=== PATIENT | female | born 1960 | race Caucasian/White ===

== ENCOUNTER 2024-10-20 08:01 | Outpatient (AMB) | payer BC, SELFPAY ==
--- NOTE | 2024-10-20 08:03 | MHC.PC.OV ---
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 Intake Note: New patient visit Distribution Collection Operator Required: No Allergies No Known Allergies Allergy (Verified 10/20/24 08:06) Medication List - Last Reconciled 10/20/24 by Tessa White PA-C estradiol 0.01%(0.1mg/gram) vaginal nitrofurantoin macrocrystal 50 mg PO DAILY PRN venlafaxine ER 75 mg PO ONCE Tobacco use date assessed: 10/20/24 Fall risk assessment: No Falls in past year Last assessed Fall Risk: 10/20/24 Dental Screening Dental Screen Date: 10/20/24 HPI 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 She is transferring from [place] and reports a significant past medical history of Crohn's disease, SCC, prediabetes, anxiety, depression, osteopenia, hx of SEAN, SCC and lichen sclerosis. Psych: Has a history of anxiety and depression and has been well-controlled on venlafaxine 75 mg daily. GI: Follows with [facility] for Crohn's disease and gets colonoscopy q 5 years. Discussing starting Skyrizi pending insurance approval. Crohn's disease is somewhat stable in terms of symptoms but she states on imaging she did have signs of disease progression. Derm: had recent SCC from left chest wall. She followed with [facility] for removal of skin cancer but normally follows with [facility]. 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 She would like this done at [facility] General: Frustrated with her weight and interested in possibly trying a GLP 1. 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 1. Little interest or pleasure in doing things: not at all 2. Feeling down, depressed, or hopeless: not at all 3. Trouble falling or staying asleep, or sleeping too much: not at all 4. Feeling tired or having little energy: not at all 5. Poor appetite or overeating: not at all 6. Feeling bad about yourself - or that you are a failure or have let yourself or your family down: not at all 7. Trouble concentrating on things, such as reading the newspaper or watching television: not at all 8. Moving or speaking so slowly that other people could have noticed. Or the opposite - being so fidgety or restless that you have been moving around a lot more than usual: not at all 9. Thoughts that you would be better off or of hurting yourself in some way: not at all Total score: 0 Depression Screening Interpretation: Negative Depression Screening Done: Yes 13051 - PHQ-9 Billing: Yes Source: Developed by Drs. Hernandez Mendoza, Tosha Thompson, Roge Matute and colleagues, with an educational yessi from [employer]. Thrive Questionnaire I am a: Patient What is your living situation today?: I have a steady place to live Within the past 12 months, did the food you bought not last and you didn't have the money to get more?: Never true Within the past 12 months, did you worry whether your food would run out before you got money to buy more?: Never true Do you have trouble paying for medicines?: No Do you have trouble getting transportation to medical appointments?: No Do you have trouble paying your heating and electricity bill?: No Do you have trouble taking care of your child, family member or friend?: No Do you have trouble with day-to-day activities such as bathing, preparing meals, shopping, managing finances, etc.?: No Are you currently unemployed and looking for a job?: No Are you interested in more education?: No Please select the resources that you would like help with: None Currently or been in a relationship where the following occur: No concerns reported THRIVE Score: 0 AUDIT C Alcohol Use Questionnaire (AUDIT-C) 1. How often do you have a drink containing alcohol?: 2-4 times a month 2. How many drinks containing alcohol do you have on a typical day when you are drinking?: 1 or 2 3. How often do you have six or more drinks on one occasion?: Never Total Score: 2 Score Reviewed/Action Taken: Yes VICKIE-7 AMB Questionnaire VICKIE-7 Feeling nervous, anxious, or on edge: 0 = Not at all Not being able to stop or control worryin = Not at all Worrying too much about different things: 0 = Not at all Trouble relaxin = Not at all Being so restless that it is hard to sit still: 0 = Not at all Becoming easily annoyed or irritable: 0 = Not at all Feeling afraid as if something awful might happen: 0 = Not at all Total VICKIE-7 score (0-4 normal; 5-9 mild; 10-14 moderate; 15-21 severe): 0 Source: Developed by Drs. Hernandez Mendoza, Tosha Thompson, Roge Matute and colleagues, with an educational yessi from [employer]. VICKIE-7 Assessment Billing VICKIE-7 Assessment Tool: VICKIE-7 Assessment 65838 Physical exam (Primary Care) PHQ-9: PHQ-9 Score PHQ-9: Total score 0 10/20/24 08:05 Depression Screening Interpretation: Negative Currently or been in a relationship where the following occur: No concerns reported Const Orientation/consciousness: patient oriented x3 HENMT Ears: hearing grossly normal bilaterally Neck Thyroid: Thyroid normal Lymphatic: no lymphadenopathy noted Resp Auscultation: clear to auscultation bilaterally Cardio Rate: regular rate Rhythm: regular rhythm Heart sounds: S1 normal heart sound present and S2 normal heart sound present GI Inspection: Yes normal to inspection Palpation (GI): Soft to palpation and Other GI palpation findings present (nontender, no cva tenderness) Auscultation: normoactive bowel sounds Rectal Exam - Female: deferred Skin General skin exam: no rashes or lesions noted Neuro General: patient oriented x3, gait normal and no focal motor deficits Coding Level of Care Code New Pt Level 4 (23285) Complex EM visit Add On G2211 Diagnoses Osteopenia M85.80 Prediabetes R73.03 Generalized anxiety disorder F41.1 Major depressive disorder, recurrent, mild F33.0 Crohn disease K50.90 Additional Codes PHQ-9 - 68394 - PHQ-9 Billing: Yes ([id number]) VICKIE-7 Assessment Billing - VICKIE-7 Assessment Tool: VICKIE-7 Assessment [id number] ([id number]) Assessment & Plan Assessment & Plan (1) Osteopenia: Code(s): M85.80 - Other specified disorders of bone density and structure, unspecified site Category: Medical Plan: bone density ordered (2) Prediabetes: Code(s): R73.03 - Prediabetes Category: Medical Plan: a1c ordered (3) Generalized anxiety disorder: Code(s): F41.1 - Generalized anxiety disorder Category: Medical Plan: well controlled med refilled (4) Major depressive disorder, recurrent, mild: Code(s): F33.0 - Major depressive disorder, recurrent, mild Category: Medical Plan: As above (5) Crohn disease: Code(s): K50.90 - Crohn's disease, unspecified, without complications Category: Medical Plan: Following with GI. No recent flare-ups in terms of symptoms. Advised to contact her GI to discuss starting a GLP 1 but we did discuss that this may worsen her symptoms Orders: Orders Comprehensive [place]. Panel Fast Today F33.0 - Major depressive disorder, recurrent, mild, F41.1 - Generalized anxiety disorder, K50.90 - Crohn's disease, unspecified, without complications, M85.80 - Other specified disorders of bone density and structure, unspecified site, R73.03 - Prediabetes Lipid Panel Today F33.0 - Major depressive disorder, recurrent, mild, F41.1 - Generalized anxiety disorder, K50.90 - Crohn's disease, unspecified, without complications, M85.80 - Other specified disorders of bone density and structure, unspecified site, R73.03 - Prediabetes TSH reflex Free T4 Today F33.0 - Major depressive disorder, recurrent, mild, F41.1 - Generalized anxiety disorder, K50.90 - Crohn's disease, unspecified, without complications, M85.80 - Other specified disorders of bone density and structure, unspecified site, R73.03 - Prediabetes UA CC w/rflx Micro + Cult Today F33.0 - Major depressive disorder, recurrent, mild, F41.1 - Generalized anxiety disorder, K50.90 - Crohn's disease, unspecified, without complications, M85.80 - Other specified disorders of bone density and structure, unspecified site, R30.0 - Dysuria, R73.03 - Prediabetes Microalbumin, Random (w Creat) Today F33.0 - Major depressive disorder, recurrent, mild, F41.1 - Generalized anxiety disorder, K50.90 - Crohn's disease, unspecified, without complications, M85.80 - Other specified disorders of bone density and structure, unspecified site, R73.03 - Prediabetes MM screening mammo BI Today Z12.31 - Encounter for screening mammogram for malignant neoplasm of breast XR DEXA axial skeleton Today M85.80 - Other specified disorders of bone density and structure, unspecified site, N95.9 - Unspecified menopausal and perimenopausal disorder Complete Blood Count Auto Diff Today F33.0 - Major depressive disorder, recurrent, mild, F41.1 - Generalized anxiety disorder, K50.90 - Crohn's disease, unspecified, without complications, M85.80 - Other specified disorders of bone density and structure, unspecified site, R73.03 - Prediabetes Hemoglobin A1c Today F33.0 - Major depressive disorder, recurrent, mild, F41.1 - Generalized anxiety disorder, K50.90 - Crohn's disease, unspecified, without complications, M85.80 - Other specified disorders of bone density and structure, unspecified site, R73.01 - Impaired fasting glucose, R73.03 - Prediabetes Medications: New venlafaxine ER 75 mg PO ONCE 90 caps 3RF Patient Instructions: zepbound
[2024-10-20 08:08] VITALS: BP 122/78; PULSE 83; RESP 12; TEMP 36.4; O2SAT 99; BMI 29.8
== END 2024-10-20 08:50 | disposition home or self-care (01) ==
LOC: HO.HMCFM 08:02
PROVIDERS: PCP Physician Assistant; Visit Provider Physician Assistant
DX: R73.03 Prediabetes (principal); M85.80 Other specified disorders of bone density and structure, unspecified site; F41.1 Generalized anxiety disorder; K50.90 Crohn's disease, unspecified, without complications; F33.0 Major depressive disorder, recurrent, mild

== ENCOUNTER → 2024-10-20 08:01 | Outpatient (BNVA) | payer BC, SELFPAY | PROVIDERS: PCP Physician Assistant; Visit Provider Physician Assistant | DX: Z76.89 Persons encountering health services in other specified circumstances (principal); M85.80 Other specified disorders of bone density and structure, unspecified site; R73.03 Prediabetes; F41.1 Generalized anxiety disorder; F33.0 Major depressive disorder, recurrent, mild; K50.90 Crohn's disease, unspecified, without complications; C44.529 Squamous cell carcinoma of skin of other part of trunk; Z79.899 Other long term (current) drug therapy; Z13.31 Encounter for screening for depression | CPT/HCPCS: 96127 ==